=== PATIENT | male | born 1995 | race Caucasian/White ===

== ENCOUNTER 2019-10-02 19:00 | Emergency (ER) | payer OTHER ==
--- NOTE | 2019-10-02 19:52 | EDM.PDOC ---
ED HPI GENERAL MEDICAL PROBLEM - General Chief Complaint: ENT Problem Stated Complaint: RT EAR PAIN Time Seen by Provider: 10/02/19 19:25 Source of Information: Reports: Patient History Limitations: Reports: No Limitations - History of Present Illness INITIAL COMMENTS - FREE TEXT/NARRATIVE: 24-year-old male who has had tinnitus and some decreased hearing in his right ear for the past couple of days has developed pain for the past 5 hours. No other symptoms. He is otherwise healthy. Onset: Gradual Location: Reports: Other (Right ear) Associated Symptoms: Reports: No Other Symptoms Right Ear Pain Score (Numeric/FACES): 7 - Related Data Allergies Allergy/AdvReac Type Severity Reaction Status Date / Time No Known Allergies Allergy Verified 10/02/19 19:35 Home Meds: Home Meds NK [No Known Home Meds] 10/02/19 [History] Past Medical History HEENT History: Reports: Other (See Below) Other HEENT History: tinitis Musculoskeletal History: Reports: Fracture Other Musculoskeletal History: fingers wrist, toes, hand Neurological History: Reports: Concussion Psychiatric History: Reports: Bipolar, PTSD Social & Family History - Tobacco Use Smoking Status *Q: Never Smoker Second Hand Smoke Exposure: No - Caffeine Use Caffeine Use: Reports: None - Alcohol Use Days Per Week of Alcohol Use: 2 Number of Drinks Per Day: 2 Total Drinks Per Week: 4 - Recreational Drug Use Recreational Drug Use: Yes Recreational Drug Type: Reports: Marijuana/Hashish Recreational Drug Use Frequency: Daily ED ROS ENT - Review of Systems Review Of Systems: See Below Constitutional: Denies: Fever, Chills HEENT: Reports: Ear Pain (Right side). Denies: Throat Pain Respiratory: Denies: Shortness of Breath, Cough Cardiovascular: Denies: Chest Pain GI/Abdominal: Denies: Nausea, Vomiting ED EXAM, ENT - Physical Exam Exam: See Below Exam Limited By: No Limitations General Appearance: Alert, No Apparent Distress Ears: Other (Left tympanic membrane is normal, right is reddened and bulging, external canal is normal) Head: Atraumatic Neck: No: Lymphadenopathy (R), Lymphadenopathy (L) Respiratory/Chest: No Respiratory Distress, Lungs Clear Cardiovascular: Regular Rate, Rhythm Course - Vital Signs Last Recorded V/S: Last Vital Signs Temp 96.2 F L 10/02/19 19:41 Pulse 54 L 10/02/19 19:41 Resp 16 07/05/20 19:41 BP 125/91 H 10/02/19 19:41 Pulse Ox 96 10/02/19 19:41 - Re-Assessments/Exams Free Text/Narrative Re-Assessment/Exam: 10/02/19 19:51 Patient has a right otitis media. He was placed on amoxicillin 500 mg 3 times a day for 10 days and should recheck in 3 to 4 days if not improving satisfactorily. Ibuprofen will help with inflammation and pain. Departure - Departure Time of Disposition: 20:02 Disposition: Home, Self-Care 01 Clinical Impression: Otitis media Qualifiers: Otitis media type: suppurative Chronicity: acute Laterality: right Recurrence: non-recurrent Spontaneous tympanic membrane rupture: without spontaneous rupture Qualified Code(s): H66.001 - Acute suppurative otitis media without spontaneous rupture of ear drum, right ear - Discharge Information Instructions: Otitis Media, Adult Referrals: PCP,None [Primary Care Provider] - Forms: ED Department Discharge Care Plan Goals: Take antibiotic 3 times a day for at least 7 days, and ibuprofen will help with discomfort. Consider rechecking in 3 to 4 days if not improving satisfactorily. Sepsis Event Note (ED) - Evaluation Sepsis Screening Result: No Definite Risk - Focused Exam Vital Signs: Vital Signs Temp Pulse Resp BP Pulse Ox 10/02/19 19:41 96.2 F L 54 L 16 125/91 H 96 10/02/19 19:34 96.2 F L 54 L 16 125/91 H 96
== END 2019-10-02 20:02 | disposition home or self-care (01) ==
LOC: JP.ED 19:00
DX: H66.001 Acute suppurative otitis media without spontaneous rupture of ear drum, right ear (principal)
CPT/HCPCS: 99282; 99283